=== PATIENT | female | born 1975 | race Caucasian/White ===

== ENCOUNTER 2025-01-10 14:32 | Outpatient (CLI) | payer BC, SELFPAY ==
--- NOTE | 2025-01-10 15:00 | CRLHL7_ITS ---
For Patients: As a result of the Century Cures Act, medical imaging exams and procedure reports are released immediately into your electronic medical record. You may view this report before your referring provider. If you have questions, please contact your health care provider. BILATERAL SCREENING MAMMOGRAM WITH COMPUTER-AIDED DETECTION AND TOMOSYNTHESIS TECHNIQUE: CC and MLO views were obtained. These mammographic images have been obtained using full-field digital technique. These mammographic images were interpreted with the benefit of computer-aided detection. Breast Tomosynthesis was used in this interpretation. COMPARISON FILM: 01/29/22, 05/28/15. FINDINGS: There are scattered areas of fibroglandular density IMPRESSION: There is no radiographic evidence for malignancy. ASSESSMENT: BI-RADS Category 1: Negative RECOMMENDATION: Routine screening mammogram in 1 year. A lay language report of this examination will be provided to the patient. Nik Boone M.D. Diagnostic Radiologist [email or web address] Transcribed: 3:00 p.mFallon romo/Dictated by: Nik Boone MD @ 01/16/2025 12:03:00 PM (Electronically Signed)
== END 2025-01-10 14:33 | disposition home or self-care (01) ==
LOC: MAMMO 14:32
PROVIDERS: PCP Physician Assistant Medical; Visit Provider Family Medicine
DX: Z12.31 Encounter for screening mammogram for malignant neoplasm of breast (principal)
CPT/HCPCS: 77063; 77067

== ENCOUNTER 2025-01-16 09:25 | Outpatient (CLI) | payer BC, SELFPAY | END 2025-01-16 09:26 | disposition home or self-care (01) | LOC: NFLDREF 01-17 09:18 | PROVIDERS: PCP Physician Assistant Medical; Referring Provider Physician Assistant Medical; Visit Provider Physician Assistant Medical | DX: I10 Essential (primary) hypertension (principal); Z13.220 Encounter for screening for lipoid disorders; Z13.29 Encounter for screening for other suspected endocrine disorder | CPT/HCPCS: 80053; 80061; 84443 ==

== ENCOUNTER 2025-03-02 15:20 | Outpatient (CLI) | payer BC, SELFPAY ==
[2025-03-05 12:19] LABS: HPV Source Endocervical; HPV, High Risk by TMA Not Detected
== END 2025-03-02 15:21 | disposition home or self-care (01) ==
PROVIDERS: PCP Family Medicine; Visit Provider Family Medicine
DX: N92.0 Excessive and frequent menstruation with regular cycle (principal); I10 Essential (primary) hypertension; Z11.59 Encounter for screening for other viral diseases; Z11.51 Encounter for screening for human papillomavirus (HPV); Z12.4 Encounter for screening for malignant neoplasm of cervix; Z13.6 Encounter for screening for cardiovascular disorders
CPT/HCPCS: 80053; 80061; 82043; 82570; 86803; 87624; 87625; 88141; 88142

== ENCOUNTER 2025-03-28 15:49 | Outpatient (CLI) | payer BC, SELFPAY ==
--- NOTE | 2025-03-28 16:15 | CRLHL7_ITS ---
For Patients: As a result of the Century Cures Act, medical imaging exams and procedure reports are released immediately into your electronic medical record. You may view this report before your referring provider. If you have questions, please contact your health care provider. INDICATION: Excessive and frequent menstruation COMPARISON: none TECHNIQUE: 2D tobias scale and color Doppler images were acquired of the pelvis using a transabdominal and transvaginal approach. FINDINGS: Posterior fundal intramural fibroid measures 1.3 x 0.9 x 1.3 cm. Calculated fundal fibroid measures 3.3 x 3.3 x 3.0 cm. Uterus measures 9.2 cm in length by 5.0 cm in AP diameter by 6.0 cm in transverse dimension. The endometrial lining measures 9 mm in composite thickness. Blood products in the endocervical canal noted. The right ovary measures 3.6 x 1.9 x 2.0 cm in size and the left ovary measures 2.7 x 1.3 x 1.6 cm. The ovaries demonstrate normal arterial and venous blood flow on color Doppler analysis. There are no suspicious fluid collections within the cul-de-sac. Echogenic focus within the left ovary consistent with calcification measures 8 x 4 x 5 millimeters. IMPRESSION: Endometrial thickness 9 millimeters. Blood products in the endocervical canal. Exophytic fundal fibroid measures 3.3 cm. Smaller intramural fibroid measures 1.3 cm. Dictated by Nik Boone MD @ 03/29/2025 6:20:24 AM (Electronically Signed)
== END 2025-03-28 15:50 | disposition home or self-care (01) ==
LOC: US 15:49
PROVIDERS: PCP Family Medicine; Visit Provider Obstetrics & Gynecology
DX: N92.0 Excessive and frequent menstruation with regular cycle (principal); R93.89 Abnormal findings on diagnostic imaging of other specified body structures; D25.1 Intramural leiomyoma of uterus
CPT/HCPCS: 76830; 76856

== ENCOUNTER 2025-05-16 07:23 | Day surgery (SDC) | payer BC, SELFPAY ==
[2025-05-16 07:54] VITALS: BP 127/78; PULSE 69; RESP 16; TEMP 37.1; O2SAT 96; BMI 33.3
[2025-05-16] MEDS: SODIUM CHLORIDE 0.9 % (FLUSH) 10 ML SYRINGE IVF (08:00)
[2025-05-16] MEDS: LACTATED RINGERS 500 ML 500 ML 100 ML IV (08:00)
[2025-05-16 08:21] LABS: Ur HCG Qualitative* Negative (Negative)
--- NOTE | 2025-05-16 08:35 | P.ANES_ITS ---
Anesthesia Charges Start Date/Time Anesthesia Start Date: 05/16/25 Anesthesia Start Time: 09:17 Stop Date/Time Anesthesia Stop Date: 05/16/25 Anesthesia Stop Time: 10:04 Coding CPT Codes CPT Codes: ANESTH HYSTEROSCOPE/GRAPH - 21438 ([id number]) P2 - PATIENT W/MILD SYST DISEASE, QK - TRUCK DRIVER HELPER 2-4 CNCRNT ANES PROC, QX - STATIONARY ENGINEER REFRIGERATION SVC W/ MD MED DIRECTION
--- NOTE | 2025-05-16 08:35 | W.ANESCHARGE ---
Anesthesia Charges Start Date/Time Anesthesia Start Date: 05/16/25 Anesthesia Start Time: 09:17 Stop Date/Time Anesthesia Stop Date: 05/16/25 Anesthesia Stop Time: 10:04 Coding CPT Codes CPT Codes: ANESTH HYSTEROSCOPE/GRAPH - 02080 ([id number]) P2 - PATIENT W/MILD SYST DISEASE, QK - PBX TECHNICIAN 2-4 CNCRNT ANES PROC, QX - HYDRAULIC TECHNICIAN SVC W/ MD MED DIRECTION
--- NOTE | 2025-05-16 09:22 | P.GYNPRC_ITS ---
Procedure Note Date of procedure: 05/16/25 Will [facility] bill your pro fee for this procedure?: Yes Pre-op diagnosis: 1. Menorrhagia 2. Subserosal and intramural fibroids 3. Stenotic cervix Post-op diagnosis: Same. Procedure: 1. Hysteroscopy 2. D&C 3. Mary endometrial ablation Anesthesia: MAC and local (paracervical block) Complications: None. Surgeon: Rebeka Gage MD Estimated blood loss (mL): 5 Pathology: specimen obtained, sent to pathology (Endometrial curettings) Condition: stable Disposition: same day Findings: Uterine sound length: 9 cm. Cervix length: 5 cm. Normal appearing uterine lining. Procedure Description: After obtaining informed consent, the patient was taken to the operating room where she received monitored anesthesia care. She was prepared and draped in the normal sterile fashion, in the dorsal lithotomy position. An open-sided bivalve speculum was introduced into the vagina and the cervix visualized. The anterior lip of the cervix was grasped with a single-tooth tenaculum for traction. A paracervical block was then administered using a total of 20 mL of a 50/50 mixture of 0.25% Marcaine and 1% lidocaine plain. The cervical os was stenotic, but I was able to gently advanced a small Hegar dilator through the external and internal cervical os. Note, dark old menstrual-appearing blood extruded from the os with the slight dilation. The uterus was gently sounded. Sound length was 9 cm. The cervix length was determined to be 5 cm using Hegar dilators, yielding a uterine cavity length of 4 cm. The cervix was gently dilated to a #6 Hegar dilator. A hysteroscope was then advanced under direct visualization through the cervix into the uterine cavity. Sterile normal saline was used as distending medium. The uterine cavity was carefully inspected with the findings noted above. The hysteroscope was then removed. The endometrial lining was then sharply curetted. The Mary device was then set to a cavity length of 4 cm, inserted through the cervical os into the uterine cavity to the level of the fundus, and deployed. The device was sealed against the cervix. The safety checks were then passed x2 and the 2-minute treatment cycle initiated. Following completion of the treatment cycle, the Mary device was removed. The hysteroscope was advanced again into the uterine cavity and the uterine cavity inspected. A good ablation was noted from the internal os to fundus and to the cornua bilaterally. Pictures were taken for documentation purposes. The hysteroscope was removed. The tenaculum was removed. There was little bleeding from the tenaculum site, which was controlled with direct pressure sponge stick. All instruments were then removed. The patient tolerated the procedure well. Sponge, lap, needle, and instrument counts reported as correct x2. The patient was taken to the recovery room awake in a stable condition. Fluid deficit: 95 mL.
[2025-05-16] MEDS: LIDOCAINE 1% MDV 20 ML INJECTION (09:41)
[2025-05-16] MEDS: BUPIVACAINE 0.25% 30 ML INJECTION (09:41)
--- NOTE | 2025-05-16 09:51 | SUR.OPER ---
Fluid Deficit of 95 ml
[2025-05-16 10:00] VITALS: BP 115/74; PULSE 71; RESP 16; TEMP 37.1; O2SAT 99
--- NOTE | 2025-05-16 10:02 | P.ANES_ITS ---
Anesthesia Charges Start Date/Time Anesthesia Start Date: 05/16/25 Anesthesia Start Time: 09:17 Stop Date/Time Anesthesia Stop Date: 05/16/25 Anesthesia Stop Time: 10:04 Coding CPT Codes CPT Codes: ANESTH HYSTEROSCOPE/GRAPH - 77564 ([id number]) P2 - PATIENT W/MILD SYST DISEASE, QK - SAFETY ADMINISTRATOR 2-4 CNCRNT ANES PROC, QX - TORSION SPRING COILING MACHINE SETTER SVC W/ MD MED DIRECTION
--- NOTE | 2025-05-16 10:02 | W.ANESCHARGE ---
Anesthesia Charges Start Date/Time Anesthesia Start Date: 05/16/25 Anesthesia Start Time: 09:17 Stop Date/Time Anesthesia Stop Date: 05/16/25 Anesthesia Stop Time: 10:04 Coding CPT Codes CPT Codes: ANESTH HYSTEROSCOPE/GRAPH - 07523 ([id number]) P2 - PATIENT W/MILD SYST DISEASE, QK - RISK CONTROL CONSULTANT 2-4 CNCRNT ANES PROC, QX - CUSTOM DESIGNER SVC W/ MD MED DIRECTION
[2025-05-16 10:15] VITALS: BP 128/79; PULSE 55; RESP 16; O2SAT 100
[2025-05-16 10:30] VITALS: BP 143/75; PULSE 51; RESP 16; O2SAT 100
[2025-05-16 10:45] VITALS: BP 146/79; PULSE 56; RESP 16; O2SAT 99
[2025-05-16 11:00] VITALS: BP 144/66
== END 2025-05-16 11:25 | disposition home or self-care (01) ==
LOC: OR 07:24
PROVIDERS: Anesthesiology; PCP Family Medicine; Visit Provider Obstetrics & Gynecology
PROC: 0UF98ZZ Fragmentation in Uterus, Via Natural or Artificial Opening Endoscopic (ICD-10-PCS; CPT 58563; principal; 2025-05-16 08:45)
DX: N92.0 Excessive and frequent menstruation with regular cycle (principal); D25.1 Intramural leiomyoma of uterus; D25.2 Subserosal leiomyoma of uterus; N88.2 Stricture and stenosis of cervix uteri
CPT/HCPCS: 58563; 00952; 81025; J2003; J0665; J1100; J1885; J2250; J2405; J2704; J3010; J3490; J7120